=== PATIENT | male | born 1990 | race Two or more races ===

== ENCOUNTER 2021-02-28 16:31 | Emergency (ER) | payer OTHER ==
[~2021-02-28] VITALS: Ht 180.3 cm; Wt 95.3 kg
[2021-02-28 16:42] VITALS: BP 144/94
[2021-02-28] MEDS ORDERED: ACETAMINOPHEN/CODEINE#3 (300/30mg) TAB PO ONE (17:30)
[2021-02-28] MEDS ORDERED: ONDANSETRON ODT 4 MG TAB PO ONE (17:30)
== END 2021-03-01 00:11 | disposition home or self-care (01) ==
LOC: ER 16:31
DX: S82.831A Other fracture of upper and lower end of right fibula, initial encounter for closed fracture (principal); S82.101A Unspecified fracture of upper end of right tibia, initial encounter for closed fracture; W18.39XA Other fall on same level, initial encounter; Y93.89 Activity, other specified; Y92.89 Other specified places as the place of occurrence of the external cause; Y99.0 Civilian activity done for income or pay
CPT/HCPCS: 29515; 73590; 73610; 99284; Q0162